=== PATIENT | male | born 1945 | race Caucasian/White ===

== ENCOUNTER 2022-03-01 16:13 | Emergency (ER) | payer OTHER ==
[2022-03-01] MEDS ORDERED: Lidocaine 2% HCl 6 ML Jel ONE ×2 (16:45→16:54)
[2022-03-01] MEDS ORDERED: Phenazopyridine 95 MG Tab PO STA (17:42)
[2022-03-01] MEDS ORDERED: Amoxicillin/Clavulanate K 875-125 MG Tab PO ONE (17:45)
== END 2022-03-01 18:12 | disposition home or self-care (01) ==
LOC: FB.ED 16:13
DX: N30.90 Cystitis, unspecified without hematuria (principal)
CPT/HCPCS: 81001; 87086; 87088; 87186; 99283; A9270

== ENCOUNTER 2022-06-04 17:07 | Inpatient (IN) | payer OTHER ==
[2022-06-04 18:58] LABS: ESTIMATED GFR 21 mL/min (>60)
[2022-06-04] MEDS ORDERED: cefTRIAXone 1 GM Vial IVPUSH STA (19:18)
[2022-06-04] MEDS: Sodium Chloride 0.9% 1,000 ML IV SCH (19:58)
[2022-06-04] MEDS ORDERED: VANCOmycin 2 GM/400 ML 2 GM in Premix Bag 1 BAG IV ONE (21:14)
[2022-06-04] MEDS ORDERED: Ondansetron 4 MG/2 ML SDV IVPUSH ONE (21:15)
[2022-06-04] MEDS: fentaNYL 100 MCG/2 ML SDV IVPUSH PRN ×2 (21:30→22:17)
[2022-06-04] MEDS ORDERED: Sodium Chloride 0.9% 1,000 ML IV SCH (21:45)
[2022-06-04] MEDS ORDERED: Enoxaparin 30 MG/0.3 ML Syringe SUBCUT SCH (21:45)
[2022-06-04] MEDS: HYDROmorphone 2 MG/ML SDV IVPUSH PRN (23:10)
[2022-06-04] MEDS: Sodium Chloride 0.9% 10 ML Syringe FLUSH PRN (23:12)
[2022-06-05] MEDS: HYDROmorphone 2 MG/ML SDV IVPUSH PRN ×3 (03:49→16:12)
[2022-06-05] MEDS: Sodium Chloride 0.9% 10 ML Syringe FLUSH PRN (03:52)
[2022-06-05] MEDS: oxyCODONE 5 MG Tab PO SCH ×3 (05:31→13:30)
[2022-06-05 07:18] LABS: ESTIMATED GFR 23 mL/min (>60)
[2022-06-05] MEDS ORDERED: Saccharomyces Boulardii (Probiotic) 250 MG Cap PO SCH (10:15)
[2022-06-05] MEDS: Piperacillin/Tazobactam 2.25 GM in Sodium Chloride 0.9% 50 ML IV SCH ×2 (10:29→16:09)
[2022-06-05] MEDS: Sodium Chloride 0.9% 1,000 ML IV SCH (11:40)
[2022-06-05] MEDS ORDERED: Hydroxyurea 500 MG Cap PO SCH (12:30)
[2022-06-05] MEDS ORDERED: Clindamycin Phosphate 600 MG in Dextrose 5% in Water 50 ML IV SCH ×2 (12:30)
[2022-06-05] MEDS ORDERED: Donepezil 10 MG Tab PO SCH (21:00)
[2022-06-06] MEDS ORDERED: Ferrous Sulfate 325 MG Tab PO SCH (09:00)
== END 2022-06-05 16:40 | DRG 372 ==
LOC: FB.ED 17:07 → FB.MS 21:52 → UNDOADMIN 21:52 → FB.MS 06-05 00:45
PROVIDERS: ADMIT Family Medicine; ATTEND Family Medicine
DX: K65.1 Peritoneal abscess (principal); R10.84 Generalized abdominal pain; N17.9 Acute kidney failure, unspecified; E86.0 Dehydration; K65.0 Generalized (acute) peritonitis; N32.89 Other specified disorders of bladder; H54.61 Unqualified visual loss, right eye, normal vision left eye; Q64.4 Malformation of urachus; Z98.890 Other specified postprocedural states; G30.9 Alzheimer's disease, unspecified; F02.80 Dementia in other diseases classified elsewhere, unspecified severity, without behavioral disturbance, psychotic disturbance, mood disturbance, and anxiety; D47.3 Essential (hemorrhagic) thrombocythemia; Z66 Do not resuscitate; Z79.2 Long term (current) use of antibiotics; Z90.79 Acquired absence of other genital organ(s); Z79.82 Long term (current) use of aspirin; Z79.899 Other long term (current) drug therapy; Z87.440 Personal history of urinary (tract) infections; Z89.201 Acquired absence of right upper limb, unspecified level
CPT/HCPCS: 36415; 74176; 80053; 82150; 83605; 83690; 85025; 87040 ×2; 96361; 96365; 96366; 96375; 96376; 99223; 99284; 99285; J0696; J1650; J2405; J3010; J3370; J7030; 81001; 87086; 99238; A9270-GY; J1170; J2543; J3490

== ENCOUNTER 2024-07-17 20:41 | Emergency (ER) | payer OTHER ==
[2024-07-17 21:34] LABS: BASOPHILS PERCENT AUTO 0.2 % (0.3-3.8); EOSINOPHILS ABSOLUTE AUTO 0.3 x10-3/uL (0.0-0.6); HEMATOCRIT 28.8 % (38.3-50.1); HEMOGLOBIN 9.4 g/dL (12.9-17.7); LYMPHOCYTES ABSOLUTE AUTO 1.4 x10-3/uL (0.5-4.5); MEAN CORPUSCULAR HEMOGLOBIN 32.1 pg (27.0-33.3); MEAN CORPUSCULAR HGB CONC 32.6 g/dL (28.7-35.3); MEAN CORPUSCULAR VOLUME 98.6 fL (80.8-98.7); MEAN PLATELET VOLUME 8.5 fL (6.7-11.0); MONOCYTES ABSOLUTE AUTO 0.8 x10-3/uL (0.0-1.2); MONOCYTES PERCENT AUTO 7.8 % (5.5-15.2); NEUTROPHILS ABSOLUTE AUTO 7.9 x10-3/uL (1.7-6.9); PLATELET COUNT,PLT 724 x10(3)uL (117-477); RED BLOOD CELL COUNT 2.92 x10(6)uL (3.90-5.90); RED CELL DISTRIBUTION WIDTH 19.9 % (12.4-15.0); WHITE BLOOD CELL COUNT,WBC 10.4 x10-3/uL (3.2-10.1)
[2024-07-17 21:51] LABS: A/G RATIO 0.6; ALANINE AMINOTRANSFERASE,ALT 18 U/L (12-36); ALBUMIN 2.8 g/dL (3.2-4.6); ALKALINE PHOSPHATASE 71 IU/L (56-112); ASPARTATE AMNIOTRANSFERASE,AST 19 IU/L (5-25); BILIRUBIN TOTAL 0.2 mg/dL (0.1-1.3); BLOOD UREA NITROGEN,BUN 43 mg/dL (7-18); BUN/CREATININE RATIO 20.5 (9-20); CALCIUM 8.4 mg/dL (8.6-10.2); CARBON DIOXIDE,CO2 24 mmol/L (21-32); CHLORIDE,CL 109 mmol/L (100-110); ESTIMATED GFR 32 mL/min (>60); GLUCOSE RANDOM 119 mg/dL (80-116); MAGNESIUM 1.9 mg/dL (1.8-2.5); POTASSIUM,K 4.1 mmol/L (3.5-5.3); PROTEIN TOTAL,TP 7.4 g/dL (6.0-8.0); SODIUM,NA 143 mmol/L (135-145)
[2024-07-17 21:53] LABS: CREATININE 2.1 mg/dL (0.70-1.30)
== END 2024-07-18 01:05 | disposition home or self-care (01) ==
LOC: FB.ED 20:41
DX: S40.012A Contusion of left shoulder, initial encounter (principal); S00.83XA Contusion of other part of head, initial encounter; S00.412A Abrasion of left ear, initial encounter; F17.200 Nicotine dependence, unspecified, uncomplicated; N18.9 Chronic kidney disease, unspecified; Z79.899 Other long term (current) drug therapy; Z79.82 Long term (current) use of aspirin; Z79.891 Long term (current) use of opiate analgesic; W06.XXXA Fall from bed, initial encounter
CPT/HCPCS: 36415; 70450; 71250; 72125; 73030-LT; 80053; 83735; 85025; 86140; 93005; 93010; 99284; 99285